=== PATIENT | male | born 1975 | race Caucasian/White ===

== ENCOUNTER 2021-01-11 21:11 | Emergency (ER) | payer BC, SELFPAY ==
--- NOTE | ~2021-01-11 | CT_ITS ---
EXAMINATION: CT abdomen pelvis w con DATE: 01/11/2021 22:17 INDICATION: Right upper quadrant abdominal pain TECHNIQUE: Computed tomography (CT) of the abdomen and pelvis was performed with 100 cc Omnipaque 350 intravenous contrast. The dose-length product was 1473.54 mGy-cm. Automated exposure control and ite rative reconstruction technique were employed. COMPARISON: None. FINDINGS: Lung bases unremarkable. Heart size normal. No significant pleural or pericardial effusion. No significant vascular abnormality. No lymphadenopathy. There are gallstones. There is possible gallbladder wall thickening. Nonobstructive bowel gas pattern . Fatty infiltration of the liver. The spleen, pancreas, adrenal glands and kidneys are unremarkable. N o lymphadenopathy. No significant osseous abnormality. IMPRESSION: 1. Cholelithiasis with possible gallbladder wall thickening. Consider cholecystitis in the appropriat e clinical setting. Reviewed, dictated and finalized at location A. IMPRESSION: 1. Cholelithiasis with possible gallbladder wall thickening. Consider cholecyst itis in the appropriate clinical setting.
[2021-01-11 21:17] VITALS: BP 144/85; PULSE 70; RESP 17; TEMP 36.6; O2SAT 98
--- NOTE | 2021-01-11 21:36 | ECG_ITS ---
Measurements Intervals [place] Rate: 66 P: 27 [place]: 178 QRS: 19 QRSD: 95 T: 6 QT: 390 QTc: 410 Interpretive Statements SINUS RHYTHM BASELINE WANDER- I, II, III, AVR, AVL, AVF, V1-V3 BORDERLINE ECG Electronically Signed On 01-12-2021 7:12:32 CDT by Richard Chaudhry D.O.
[2021-01-11 21:41] LABS: Basophils Absolute Auto 0.1 K/mm3 (0.0-0.1); Basophils Percent Auto 0.5 % (0.2-1.2); Eosinophils Absolute Auto 0.2 K/mm3 (0-0.3); Eosinophils Percent Auto 1.5 % (0-4.4); Hematocrit 43.2 % (42.0-52.0); Hemoglobin 14.7 g/dL (14.0-18.0); Immature Granulocyte Absolute 0.02 K/mm3 (0.00-0.031); Immature Granulocyte Percent A 0.2 % (0-0.5); Lymphocytes Absolute Auto 3.27 K/mm3 (0.9-3.2); Lymphocytes Percent Auto 30.6 % (18.3-44.2); Mean Corpuscular Hemoglobin 29.3 pg (26-34); Mean Corpuscular Volume 86.1 fl (80-100); Mean Platelet Volume 9.6 fl (7.4-10.4); Monocytes Percent Auto 8.9 % (2.6-8.5); Neutrophils Absolute Auto 6.2 K/mm3 (1.3-6.7); Neutrophils Percent Auto 58.3 % (45.5-73.1); Platelet Count Result 299 k/mm3 (150-375); Red Blood Count 5.02 M/mm3 (4.6-6.20); Red Cell Distribution Width 13.7 % (11.5-14.5); White Blood Count 10.7 K/mm3 (4.5-10.0)
[2021-01-11] MEDS: KETOROLAC 30 MG/ML VIAL (*BKC) IV PUSH (21:43)
[2021-01-11] MEDS: LACTATED RINGERS 1,000 ML 999 ML IV CONT (21:43)
[2021-01-11] MEDS: ONDANSETRON INJ 4 MG/2 ML VIAL IV PUSH (21:43)
--- NOTE | 2021-01-11 21:48 | ED.ABDPAIN ---
HPI - Abdominal Pain General Chief Complaint: Abdominal Pain Stated Complaint: upper abd/chest pain Time Seen by Provider: 01/11/21 21:15 Source: patient Mode of arrival: ambulatory Limitations: no limitations History of Present Illness HPI narrative: This is a 45 year old male who presents for evaluation of mid back pain and right upper abdominal pain. He states yesterday he developed mid back pain. This pain has remained constant. Approximately 2-3 hours ago he develop right upper abdominal pain, that has progressively worsened. He also has associated nausea and diaphoresis. He denies sob, fever, chills. He has not taken anything for pain. Denies previous history of similar symptoms , and he states his abdominal pain started after eating nachos. Related Data Allergies Allergy/AdvReac Type Severity Reaction Status Date / Time Penicillins Allergy Mild unknown Verified 01/11/21 21:21 Review of Systems Review of Systems: All systems reviewed & are unremarkable except as noted in HPI and below Constitutional: Constitutional: Denies chills and Denies fever(s) Cardiovascular: Cardiovascular: Reports chest pain and Denies radiating jaw, neck or arm pain Respiratory: Respiratory: Reports cough and Denies dyspnea Gastrointestinal: Gastrointestinal: Reports abdominal pain, Denies diarrhea, Reports nausea and Reports vomiting PMFSH Past Medical History Medical History (Updated 01/11/21 @ 23:37 by Sabi Zimmerman MD) BPH (benign prostatic hyperplasia) Fatigue Metabolic syndrome Sleep apnea Surgical History Surgical History (Updated 01/11/21 @ 21:49 by Sabi Zimmerman MD) No pertinent past surgical history Family History Family History Grandparent Diabetes mellitus Family history of Parkinson's disease Family history of Alzheimer's disease, Onset Age: 70 Family history of dementia Mother Patient's mother is in good health Father Patient's father is in good health Sibling Patient's sister is in good health Other Malignant neoplasm of prostate Other Carcinoma of colon Social History Social History (Updated 11/25/20 @ 10:31 by Jessica Wiggins NP) Social History: 1/2 can of chewing tobacco per day. . No children. Smoking status: Current some day smoker Tobacco type: smokeless tobacco Smokeless tobacco user: snuff Second hand tobacco smoke exposure: Yes Alcohol intake: current Substance use: never Substance use type: does not use Additional living arrangements comments: with Additional occupation/education comments: [employer] -[employer] Gender identity (if verbalized by the patient): Male Spiritual care concerns: No Agree to blood products: Yes Exam Const: General: no acute distress and alert Orientation/consciousness: patient oriented x3 Eyes: EOM: EOMs intact bilaterally Chest: Chest palpation & inspection: normal inspection of the chest Resp: Effort & Inspection: normal respiratory effort and no retractions Auscultation: clear to auscultation bilaterally Cardio: Rate: regular rate Rhythm: regular rhythm Heart sounds: no murmurs GI: GI Palp: Yes Soft to palpation, Yes Tenderness to palpation present (GI) (RUQ, epigastric), No Guarding due to palpation present (GI) and No Rigid due to palpation Auscultation: normal bowel sounds Skin: General skin exam: normal color Rashes: no rashes Neuro: General: patient oriented x3, moves all extremities and CN's II-XI intact bilaterally Psych: Mental Status: mental status grossly normal Affect: normal affect Course Reevaluation(s) Reevaluation #1: Patient states his pain has completely resolved. I discussed Dr. Lindsey recommends discharge on low fat diet. Date: 01/11/21 Time: 23:26 Consultations Consultation #1: I discussed case with DR. Lindsey. I review labs with elevated lft, lipase. He states patient can be discharge and have outpatient follow
[2021-01-11 21:52] LABS: Alanine Aminotransferase 469 U/L (4-50); Albumin Level 4.5 g/dL (3.5-5.1); Alkaline Phosphatase 95 U/L (38-126); Anion Gap 8 mmol/L (8-16); Aspartate Amino Transferase 308 U/L (17-59); Blood Urea Nitrogen 9 mg/dL (9-20); Calcium 9.1 mg/dL (8.4-10.2); Carbon Dioxide 28 mmol/L (22-30); Chloride 106 mmol/L (98-107); Estimated CRCL calculation 109 ml/min; Estimated Glomerular Filt Rate > 60; Glucose 101 mg/dL (75-110); Lipase 657 U/L (23-300); Potassium 3.9 mmol/L (3.4-5.0); Sodium 142 mmol/L (137-145)
[2021-01-11 22:03] LABS: Troponin I < 0.012 ng/mL (0.000-0.034)
[2021-01-11 22:09] VITALS: BP 123/75; PULSE 80; RESP 18; O2SAT 97
[2021-01-11 22:35] LABS: Add Urine Microscopic? YES; Appearance Urine Clear (Clear); Bilirubin Urine 1+ (Negative); Blood Urine Negative (Negative); Color Urine Amber (Yellow); Glucose Urine UA Negative (Negative); Ketones Urine Negative (Negative); Leukocyte Esterase Ur Negative LEU/UL (Negative); Mucus Urine Rare /lpf; Nitrate Urine Negative (Negative); Protein Urine Negative (Negative); WBC Urine 0-3 /hpf
[2021-01-11 22:41] LABS: Specific Grav Ur 1.035 (1.001-1.035)
[2021-01-11 22:54] VITALS: BP 127/69; PULSE 74; RESP 20; O2SAT 97
[2021-01-12 00:01] VITALS: BP 129/78; PULSE 83; RESP 22; O2SAT 97
== END 2021-01-12 00:01 | disposition home or self-care (01) ==
PROVIDERS: Emergency Provider General Practice; PCP Nurse Practitioner Family
DX: K80.20 Calculus of gallbladder without cholecystitis without obstruction (principal); K85.90 Acute pancreatitis without necrosis or infection, unspecified; N40.0 Benign prostatic hyperplasia without lower urinary tract symptoms; E88.81 Metabolic syndrome and other insulin resistance; G47.30 Sleep apnea, unspecified; F17.220 Nicotine dependence, chewing tobacco, uncomplicated; R94.31 Abnormal electrocardiogram [ECG] [EKG]
CPT/HCPCS: 36415; 74177; 80053; 81001; 83690; 84484; 85025; 93005; 96365; 96375; 99284; A9270; J1885; J2405; J7120; Q9967

== ENCOUNTER → 2021-01-23 01:18 | Outpatient (CLI) | payer BC, SELFPAY ==
[2021-01-23 19:15] LABS: SARS-CoV-2 RNA PCR Negative
== END ==
PROVIDERS: PCP Nurse Practitioner Family; Visit Provider Surgery
DX: Z01.812 Encounter for preprocedural laboratory examination (principal); Z20.822 Contact with and (suspected) exposure to COVID-19
CPT/HCPCS: C9803; U0003; U0005

== ENCOUNTER 2021-01-23 08:29 | Outpatient (CLI) | payer BC, SELFPAY ==
[2021-01-23 10:04] LABS: Alanine Aminotransferase 63 U/L (4-50); Albumin Level 4.5 g/dL (3.5-5.1); Alkaline Phosphatase 53 U/L (38-126); Amylase 48 U/L (30-110); Aspartate Amino Transferase 36 U/L (17-59); Bilirubin,Total 0.4 mg/dL (0.2-1.3); Lipase 84 U/L (23-300)
== END 2021-01-23 08:30 | disposition home or self-care (01) ==
LOC: ANHSURGERY 08:33
PROVIDERS: PCP Nurse Practitioner Family; Visit Provider Surgery
DX: Z01.818 Encounter for other preprocedural examination (principal); K80.10 Calculus of gallbladder with chronic cholecystitis without obstruction
CPT/HCPCS: 36415; 80076; 82150; 83690; 86850; 86900; 86901

== ENCOUNTER 2021-01-26 01:44 | Day surgery (SDC) | payer BC, SELFPAY ==
[2021-01-20 08:42] VITALS: BMI 39.6
--- NOTE | 2021-01-25 09:59 | WPDANESEPPF ---
Anes - Initial Pre Proc Eval Procedure: Operation Date: 01/26/21 13:30 Proposed Procedures p Laparoscopic Cholecystectomy - Spenser Lindsey MD Date/Time: 01/25/21 09:59 Surgeon: Spenser Lindsey MD Pre Op Diagnosis: cholecystitis with stones Patient Data Age: 45 Gender: M Height: 1.79 m Weight: 127 kg Allergies Allergy/AdvReac Type Severity Reaction Status Date / Time Penicillins Allergy Mild flu Verified 01/26/21 14:00 symptoms Home Medications Medication Instructions Recorded Confirmed Type levofloxacin 500 mg PO DAILY #6 tablet 01/11/21 01/20/21 Rx metronidazole [Flagyl] 500 mg PO Q8H 7 Days #21 tablet 01/11/21 01/20/21 Rx ascorbic acid (vitamin C) [Vitamin 500 mg PO DAILY 01/20/21 01/20/21 History C] Patient hx anesthesia problems: none Family hx anesthesia problems: none PMFSH Past Medical History Medical History BPH (benign prostatic hyperplasia) Fatigue History of gastroesophageal reflux (GERD) History of kidney stones Metabolic syndrome Sleep apnea Surgical History Surgical History History of fundoplication Family History Family History Grandparent Diabetes mellitus Family history of Parkinson's disease Family history of Alzheimer's disease, Onset Age: 70 Family history of dementia Hypertension Mother Patient's mother is in good health Father Patient's father is in good health Sibling Patient's sister is in good health Other Malignant neoplasm of prostate Other Carcinoma of colon Social History Social History Social History: 1/2 can of chewing tobacco per day. . No children. 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 Gender identity (if verbalized by the patient): Male Spiritual care concerns: No Agree to blood products: Yes Marybeth - Kristen Final PreProcedure Day of Procedure 01/25/21 09:59 Patient weight: obese Heart: regular rate and rhythm Lungs: clear to auscultation and normal air movement Airway: Mallampati scale class II Neurological: alert and oriented Last oral intake: >/= 8 hours ASA classification: III Emergent: no Anesthetic plan: proceed Anesthesia type and monitoring: general ETT and standard monitoring Informed Consent: The patient's anesthetic plan and its attendant risks and benefits were discussed with the patient/family/POA. Questions were solicited and answers provided to the satisfaction of the patient/family/POA.
[2021-01-26] VITALS (7 sets, daily range): BP systolic 125–143; BP diastolic 61–90; PULSE 65–99; RESP 12–21; TEMP 36.1–36.6; O2SAT 93–100
--- NOTE | 2021-01-26 10:25 | WPDHPUPDATE1 ---
History and Physical Update Update Date/Time: 01/26/21 10:25 History and Physical has been reviewed, including an updated exam of the patient. There are NO changes in the patient's condition. Risks, benefits, and alternatives have been discussed and questions answered. Patient agrees to proceed with procedure.
[2021-01-26] MEDS: ACETAMINOPHEN 500 MG TABLET 1000 MG PO (13:10)
[2021-01-26] MEDS: LACTATED RINGERS 1,000 ML 30 ML IV CONT ×2 (13:20→15:51)
[2021-01-26] MEDS: KETOROLAC 15 MG/ML VIAL (*BKC) IV PUSH (13:31)
--- NOTE | 2021-01-26 14:34 | P.OP_ITS ---
Procedure Note - Detailed Date of procedure: 01/26/21 Pre-op diagnosis: Chronic cholecystitis with stones Chronic cholecystitis, cholelithiasis Post-op diagnosis: same Procedure performed: Laparoscopic cholecystectomy Description of procedure: The patient was taken to surgery and induced into general anesthesia. The abdomen was prepped and draped. Trocars were placed in the usual fashion using 0.5% Marcaine with epinephrine and applied Medical optical trocars. A 5 millimeter camera was used. There were adhesions in the area of the falciform ligament which were taken down using sharp dissection as well as some cautery. The gallbladder was decompressed with a laparoscopic aspirator. The cholecystotomy was closed with a Vicryl endo-loop. There was several large stones in the gallbladder. The gallbladder appeared chronically inflamed. The gallbladder was retracted anterosuperiorly. Adhesions to the gallbladder were taken down so that the cholecystohepatic triangle was exposed. Traction was placed on the infundibulum. The cystic duct dissected out very clearly. The cystic artery was very diminutive and was cauterized and divided. The gallbladder was dissected off the liver at its lower 3rd. Critical view was achieved. We securely clipped and divided the cystic duct. The gallbladder was then further retracted so that the peritoneal attachments to the liver could be divided. Once the gallbladder was freed entirely, it was placed in an Endo-Catch bag and retrieved through the 10 11 epigastric trocar site. The epigastric trocar was then replaced. We reviewed the right upper quadrant. It was irrigated and suctioned. Some additional cautery was used and then we irrigated and suctioned the area again. All looked good with no evidence of bleeding or bile leakage. The fascia at the epigastric trocar site was closed with 0 Vicryl suture using a Lacho cone and Lacho Sally suture pass device. CO2 was evacuated and the laparoscopic trocars were removed. Skin wounds were closed with subcuticular 4 O Monocryl skin suture. The wounds were dressed with Exofin surgical adhesive. Patient was awakened and taken to recovery in good condition. Sponge and needle counts were correct x2. Anesthesia: GETA and local (0.5% Marcaine with epinephrine) Surgeon: Spenser Lindsey MD Biomedical Equipment Technician: Diana MARMOLEJO Estimated blood loss (mL): 5 Drains: No Packing: No Pathology: yes (Gallbladder) Complications: None Condition: stable Disposition: PACU Findings: Chronic inflammation, several gallstones noted. No biliary ductal dilatation, fatty liver noted.
[2021-01-26] MEDS: ceFAZolin 3 GM/D5W 100 ML 100 ML IVPB (14:36)
[2021-01-26] MEDS: BUPIVACAINE/EPINEPHRINE 0.5% 30 ML VIAL INFILTRATE (14:58)
== END 2021-01-26 17:20 | disposition home or self-care (01) ==
PROVIDERS: PCP Nurse Practitioner Family; Visit Provider Surgery
PROC: 0FT44ZZ Resection of Gallbladder, Percutaneous Endoscopic Approach (ICD-10-PCS; CPT 47562; principal; 2021-01-26 13:30)
DX: K80.10 Calculus of gallbladder with chronic cholecystitis without obstruction (principal); N40.0 Benign prostatic hyperplasia without lower urinary tract symptoms; K21.9 Gastro-esophageal reflux disease without esophagitis; G47.30 Sleep apnea, unspecified; E66.9 Obesity, unspecified; Z68.39 Body mass index [BMI] 39.0-39.9, adult; R10.11 Right upper quadrant pain; R11.0 Nausea; F17.220 Nicotine dependence, chewing tobacco, uncomplicated
CPT/HCPCS: 47562; 88304; A9270; C1713; J0330; J0690; J1100; J1885; J2250; J2405; J2704; J2710; J3010; J7120

== ENCOUNTER → 2021-02-22 00:45 | Outpatient (CLI) | payer BC, SELFPAY ==
[2021-02-22 17:41] LABS: SARS-CoV-2 RNA PCR Negative
== END ==
PROVIDERS: PCP Nurse Practitioner Family; Visit Provider Internal Medicine Critical Care Medicine
DX: Z01.812 Encounter for preprocedural laboratory examination (principal); Z20.822 Contact with and (suspected) exposure to COVID-19
CPT/HCPCS: C9803; U0003; U0005

== ENCOUNTER → 2021-02-28 02:51 | Outpatient (CLI) | payer BC, SELFPAY ==
[2021-02-28 23:32] LABS: SARS-CoV-2 RNA PCR Negative
== END ==
PROVIDERS: PCP Nurse Practitioner Family; Visit Provider Internal Medicine Critical Care Medicine
DX: Z20.822 Contact with and (suspected) exposure to COVID-19 (principal); R09.89 Other specified symptoms and signs involving the circulatory and respiratory systems
CPT/HCPCS: C9803; U0003; U0005

== ENCOUNTER 2021-03-03 16:00 | Outpatient (CLI) | payer BC, SELFPAY ==
--- NOTE | 2021-03-13 16:52 | WPDSLEEPSTUD ---
Sleep Study Date of Study: 02/24/21 Ordering Provider: Jessica Wiggins NP Interpreting Physician: Florence Arnold MD Sleep Study Type: Polysomnogram Height: 1.8 m Weight: 122.47 kg Body Mass Index: 37.6 Neck Circumference (inches): 19.5 [place]: 3 Reason for Sleep Study Hypersomnia Sleep History Trudy Reaves is a 45-year-old man with excessive daytime sleepiness. He states that his airway is blocked when he sleeps and he has apnea. He is not certain that his current equipment is effective. He occasionally awakens from sleep feeling short of breath. He does not awaken at night with heartburn, belching or coughing. He frequently snores and is frequently loud enough that others complain about it. He occasionally has trouble sleep with a cold. He rarely wakes up gasping for breath at night. He constantly has breathing problems at night observed by others. He occasionally sweats excessively at night. He rarely notices his heart pounding or beating irregularly night. He does not fall asleep during the day and does not fall asleep involuntarily he rarely falls asleep while driving. He does not have loss of muscle tone with strong emotion. He does not have daytime difficulties due to excessive sleepiness. He does not feel paralyzed on waking or falling asleep. He does not have vivid dreamlike scenes upon awakening or falling asleep. He does not feel afraid to go to sleep. He rarely has nightmares. He rarely remembers his dreams. He does not have racing thoughts, does not feel sad depressed or anxious. He rarely has muscular tension. He occasionally notices parts of his body jerking, occasionally kicks at night. He occasionally has crawling and aching feelings in his legs. He occasionally has leg pain at night. He does not have morning jaw pain. He occasionally grind his teeth. He does not have pain during the day. He rarely is awakened by pain at night. He occasionally wakes up feeling stiff the morning with sore achy muscles and pain in the neck and spine. Normal bedtime 10:00 p.m. falling asleep in 15 minutes waking twice for 5 minutes to urinate. He wakes the morning at 6:30 a.m.. He estimates getting between 6 and 8 hours of sleep at night. Weekend schedule is the same. He does not take naps in the afternoon or evening. A short nap is not refreshing. He feels better in the morning compared other times of day. Habits: Quit tobacco 15 years ago. caffeine 2 cups a day. Alcohol once a month. No recreational drugs. [facility] Past Medical History Medical History (Updated 03/20/21 @ 08:22 by Florence Arnold MD) BPH (benign prostatic hyperplasia) Fatigue History of gastroesophageal reflux (GERD) History of kidney stones Metabolic syndrome Obstructive sleep apnea Sleep apnea Surgical History Surgical History History of fundoplication Hx laparoscopic cholecystectomy (~01/26/21) Family History Family History Grandparent Diabetes mellitus Family history of Parkinson's disease Family history of Alzheimer's disease, Onset Age: 70 Family history of dementia Hypertension Mother Patient's mother is in good health Father Patient's father is in good health Sibling Patient's sister is in good health Other Malignant neoplasm of prostate Other Carcinoma of colon Social History Social History Social History: 1/2 can of chewing tobacco per day. . No children. Smoking packs per day: 1 Smoking cigarettes per day: 20.0 Years smoked: 12 Smoking pack-years: 12.00 Smoking status: Former smoker Tobacco type: smokeless tobacco Smokeless tobacco user: snuff Second hand tobacco smoke exposure: Yes Smoking end date: 09/23/03 Alcohol intake: current Substance use: never Substance use type: does not use Additional living
[2021-03-20 08:27] VITALS: BMI 37.6
== END 2021-03-04 07:19 | disposition home or self-care (01) ==
LOC: ANHCSM 03-06 10:16
PROVIDERS: PCP Nurse Practitioner Family; Visit Provider Nurse Practitioner Family
DX: G47.10 Hypersomnia, unspecified (principal); G47.33 Obstructive sleep apnea (adult) (pediatric)
CPT/HCPCS: 95810

== ENCOUNTER 2021-05-11 07:44 | Outpatient (CLI) | payer BC, SELFPAY ==
[2021-06-05 13:06] VITALS: BMI 39.1
--- NOTE | 2021-06-05 13:06 | WPDSLEEPSTUD ---
Sleep Study Date of Study: 05/11/21 Ordering Provider: Jessica Wiggins NP Interpreting Physician: Florence Arnold MD Sleep Study Type: Polysomnogram Height: 1.78 m Weight: 123.675 kg Body Mass Index: 39.1 Neck Circumference (inches): 19 [place]: 3 Reason for Sleep Study * basic sleep study 02/24/2021 with mild obstructive sleep apnea with an apnea-hypopnea index of 5, desaturation 83% and snoring. This was more severe in the supine position with an AHI of 11.8 and significantly higher with the supine REM AHI of 60. The patient questionnaire indicates that he currently was CPAP at the time of the February 24 study, however his equipment was not effective. Sleep History Trudy Reaves is a 45-year-old man with excessive daytime sleepiness. He states that his airway is blocked when he sleeps and he has apnea. He is not certain that his current equipment is effective. He occasionally awakens from sleep feeling short of breath. He does not awaken at night with heartburn, belching or coughing. He frequently snores and is frequently loud enough that others complain about it. He occasionally has trouble sleep with a cold. He rarely wakes up gasping for breath at night. He constantly has breathing problems at night observed by others. He occasionally sweats excessively at night. He rarely notices his heart pounding or beating irregularly night. He does not fall asleep during the day and does not fall asleep involuntarily he rarely falls asleep while driving. He does not have loss of muscle tone with strong emotion. He does not have daytime difficulties due to excessive sleepiness. He does not feel paralyzed on waking or falling asleep. He does not have vivid dreamlike scenes upon awakening or falling asleep. He does not feel afraid to go to sleep. He rarely has nightmares. He rarely remembers his dreams. He does not have racing thoughts, does not feel sad depressed or anxious. He rarely has muscular tension. He occasionally notices parts of his body jerking, occasionally kicks at night. He occasionally has crawling and aching feelings in his legs. He occasionally has leg pain at night. He does not have morning jaw pain. He occasionally grind his teeth. He does not have pain during the day. He rarely is awakened by pain at night. He occasionally wakes up feeling stiff the morning with sore achy muscles and pain in the neck and spine. Normal bedtime 10:00 p.m. falling asleep in 15 minutes waking twice for 5 minutes to urinate. He wakes the morning at 6:30 a.m.. He estimates getting between 6 and 8 hours of sleep at night. Weekend schedule is the same. He does not take naps in the afternoon or evening. A short nap is not refreshing. He feels better in the morning compared other times of day. Habits: Quit tobacco 15 years ago. caffeine 2 cups a day. Alcohol once a month. No recreational drugs. [facility] Past Medical History Medical History (Updated 06/05/21 @ 13:17 by Florence Arnold MD) BPH (benign prostatic hyperplasia) Fatigue History of gastroesophageal reflux (GERD) History of kidney stones Metabolic syndrome Obstructive sleep apnea (~04/2021) Sleep apnea Surgical History Surgical History History of fundoplication Hx laparoscopic cholecystectomy (~01/26/21) Family History Family History Grandparent Diabetes mellitus Family history of Parkinson's disease Family history of Alzheimer's disease, Onset Age: 70 Family history of dementia Hypertension Mother Patient's mother is in good health Father Patient's father is in good health Sibling Patient's sister is in good health Other Malignant neoplasm of prostate Other Carcinoma of colon Social History Social History Social History: 1/2 can of chewing tobacco per day. . No children.
== END 2021-05-12 06:55 | disposition home or self-care (01) ==
LOC: ANHCSM 07:45
PROVIDERS: PCP Nurse Practitioner Family; Visit Provider Nurse Practitioner Family
DX: G47.33 Obstructive sleep apnea (adult) (pediatric) (principal); Z68.39 Body mass index [BMI] 39.0-39.9, adult
CPT/HCPCS: 95811

== ENCOUNTER 2021-07-03 09:12 | Emergency (ER) | payer BC, SELFPAY ==
--- NOTE | ~2021-07-03 | XR_ITS ---
XR foot RT min 3V DATE: 07/03/2021 09:49 INDICATION: Fall, Foot injury, pain, especially first digit are TECHNIQUE: 4 views COMPARISON: None FINDINGS: There is minimal plantar and slight posterior calcaneal enthesopathy. No fracture, dislocation, periosteal reaction or bone destruction. No erosive change. IMPRESSION: Minimal plantar and slight posterior calcaneal enthesopathy No fracture or dislocation Reviewed, dictated and finalized at location B.
[2021-07-03 09:23] VITALS: BP 121/69; PULSE 68; RESP 18; TEMP 36.6; O2SAT 99
--- NOTE | 2021-07-03 09:40 | ED.LOWEXIN ---
HPI - Extremity Injury (Lower) General Chief Complaint: Extremity Injury, Lower Stated Complaint: Right Foot Pain Time Seen by Provider: 07/03/21 09:40 Source: patient Mode of arrival: ambulatory Limitations: no limitations History of Present Illness HPI Narrative: Trudy Reaves is a 45 yo male with PMH BPH , GERD ,[facility] fall on right great toe [employer] on Saturday night. He was wearing a pair tennis shoes and missed a step and drove his toe into the concrete and also fell with it has an abrasion on his other knee, he has iced it is continue to have pain across the top of the toe and down the metatarsal to the midfoot since then Related Data Home Medications Medication Instructions Recorded Confirmed ascorbic acid (vitamin C) [Vitamin 500 mg PO DAILY 01/20/21 02/13/21 C] Allergies Allergy/AdvReac Type Severity Reaction Status Date / Time Penicillins Allergy Mild flu Verified 02/13/21 08:16 symptoms Review of Systems Review of Systems: CONSTITUTIONAL: Denies fever, chills, sweats. EYES: Denies visual changes, redness, discharge. ENT: Denies rhinorrhea, congestion, sore throat, otalgia. CARDIOVASCULAR: Denies chest pain, palpitations, edema. RESPIRATORY: Denies dyspnea, wheezing, cough GASTROINTESTINAL: Denies abdominal pain, nausea, vomiting, diarrhea. GENITOURINARY: Denies dysuria, hematuria, abnormal discharge SKIN: Denies rash or itching. NEUROLOGIC: Denies numbness, or focal weakness. PSYCHIATRIC: Denies anxiety or depression. Right great toe ecchymosis and pain with walking PMFSH Past Medical History Medical History BPH (benign prostatic hyperplasia) Fatigue History of gastroesophageal reflux (GERD) History of kidney stones Metabolic syndrome Obstructive sleep apnea (~04/2021) Sleep apnea Surgical History Surgical History History of fundoplication Hx laparoscopic cholecystectomy (~01/26/21) Family History Family History Grandparent Diabetes mellitus Family history of Parkinson's disease Family history of Alzheimer's disease, Onset Age: 70 Family history of dementia Hypertension Mother Patient's mother is in good health Father Patient's father is in good health Sibling Patient's sister is in good health Other Malignant neoplasm of prostate Other Carcinoma of colon Social History Social History Social History: 1/2 can of chewing tobacco per day. . No children. Smoking packs per day: 1 Smoking cigarettes per day: 20.0 Years smoked: 12 Smoking pack-years: 12.00 Smoking status: Former smoker Tobacco type: smokeless tobacco Smokeless tobacco user: snuff Second hand tobacco smoke exposure: Yes Smoking end date: 09/23/03 Alcohol intake: current Alcohol use details: 2-4/MONTH Substance use: never Substance use type: does not use Additional living arrangements comments: with Additional occupation/education comments: [employer] -[employer] Gender identity (if verbalized by the patient): Male Spiritual care concerns: No Agree to blood products: Yes Exam Narrative: GENERAL: This is a well-nourished, well-developed patient, in mild distress. HEAD: normocephalic, atraumatic. EYES: Sclera clear/white. Vision is grossly intact. EARS: External ears normal. Hearing grossly intact. NOSE: External nose normal without nasal discharge, nares without redness, no rhinorrhea. THROAT: Mucous membranes moist, NECK: Neck supple, non-tender CARDIOVASCULAR: Regular rate and rhythm without murmurs, gallops, or rubs. RESPIRATORY: Clear to auscultation. Breath sounds equal bilaterally. No wheezes, rales, or rhonchi. GASTROINTESTINAL: Abdomen soft, SKIN: warm, intact with no suspicious lesions or rash, goo
== END 2021-07-03 10:15 | disposition home or self-care (01) ==
PROVIDERS: Emergency Provider Nurse Practitioner
DX: M79.674 Pain in right toe(s) (principal); N40.0 Benign prostatic hyperplasia without lower urinary tract symptoms; K21.9 Gastro-esophageal reflux disease without esophagitis; G47.33 Obstructive sleep apnea (adult) (pediatric); G47.30 Sleep apnea, unspecified; E88.81 Metabolic syndrome and other insulin resistance; F17.220 Nicotine dependence, chewing tobacco, uncomplicated
CPT/HCPCS: 73630; 99213; G0463

== ENCOUNTER → 2021-12-27 17:49 | Outpatient (CLI) | payer BC, SELFPAY ==
--- NOTE | ~2021-12-27 | MR_ITS ---
EXAMINATION: MR shoulder RT wo con DATE: 12/27/2021 18:44 INDICATION: Right shoulder pain TECHNIQUE: Magnetic resonance imaging (MRI) of the right shoulder was performed without intravenous c ontrast. Sequences included axial PD-weighted FS FSE, coronal oblique PD-weighted FS FSE, coronal obl ique T2-weighted FS FSE, sagittal PD-weighted FS FSE, and sagittal T1-weighted SE. COMPARISON: None. FINDINGS: Coracoacromial arch: The acromion undersurface is curved in morphology (type II). The coracoacromial ligament is normal. M ild acromioclavicular osteoarthritis. Rotator cuff: Mild supraspinatus tendinopathy with very thin linear fluid signal extending 5 mm AP along the footpl ate of the conjoined portion of the supraspinatus and infraspinatus tendons consistent with tiny spli t tear. The subscapularis and teres minor tendons are normal. Normal rotator cuff muscle bulk and sig nal. Biceps tendon, glenoid labrum and glenohumeral cartilage: Long head of the biceps tendon is normal. There is a superior, anterior to posterior tear of the tam oid labrum (SLAP tear) beginning at the 12:30 position anteriorly and extending posteriorly to the 10 :00 position. There is partial thickness cartilage loss with relatively smooth chondral surface along the cephalad half of the glenoid and along the medial aspect of the humeral head without degenerativ e subchondral changes. Fluid: Physiologic amount of fluid in the glenohumeral joint and biceps tendon sheath. No loose osteochondr al bodies. Mild increased fluid signal in the subacromial/subdeltoid bursa consistent with mild bursi tis. Bones: Normal marrow signal with no edema, fracture or abnormal marrow replacing process. IMPRESSION: 1. Mild glenohumeral osteoarthritis with SLAP tear at the superior to posterior superior glenoid labr um. 2. Mild supraspinatus tendinopathy with very small intrasubstance split tear at the footplate of the conjoined portion of the tendon. 3. Mild acromioclavicular arthritis with mild underlying subacromial/subdeltoid bursitis. Reviewed, dictated and finalized at location B. IMPRESSION: 1. Mild glenohumeral osteoarthritis with SLAP tear at the superior to posterior superior glenoid labrum. 2. Mild supraspinatus tendinopathy with very small intrasubstance split tear at the footplate of the conjoined portion of the tendon. 3. Mild acromioclavicular arthritis with mild underlying subacromial/subdeltoid bursitis.
== END ==
PROVIDERS: Visit Provider Orthopaedic Surgery
DX: S43.431A Superior glenoid labrum lesion of right shoulder, initial encounter (principal); M75.51 Bursitis of right shoulder
CPT/HCPCS: 73221